=== PATIENT | male | born 2000 | race Caucasian/White ===

== ENCOUNTER 2022-10-23 20:32 | Emergency (ER) | payer BC, SELFPAY ==
[2022-10-23 20:49] VITALS: BP 158/103; PULSE 92; RESP 18; TEMP 36.8; O2SAT 100
--- NOTE | 2022-10-24 01:38 | PC.NURSE ---
Patient's name called twice by provider. No answer and no patient found in waiting room by that name.
== END 2022-10-24 01:38 | disposition left against medical advice (07) ==
DX: Z53.21 Procedure and treatment not carried out due to patient leaving prior to being seen by health care provider (principal)
CPT/HCPCS: 99199

== ENCOUNTER 2025-03-23 02:28 | Emergency (ER) | payer SELFPAY ==
--- NOTE | ~2025-03-23 | XR_ITS ---
EXAMINATION: XR hand RT min 3V DATE: 03/23/2025 02:57 INDICATION: Ulnar-sided right hand pain after punching objects TECHNIQUE: Posteroanterior, oblique and lateral views of the right hand were obtained. COMPARISON: None. FINDINGS: Alignment is normal. No fracture. Joint spaces are normal. Prominent soft tissue swelling dorsal to t he heads of the metacarpals. IMPRESSION: 1. No osseous abnormality. Reviewed, dictated and finalized at location A. IMPRESSION: 1. No osseous abnormality.
--- NOTE | ~2025-03-23 | XR_ITS ---
EXAMINATION: XR elbow RT min 3V DATE: 03/23/2025 02:56 INDICATION: Pain after punching the right elbow through a window TECHNIQUE: Anteroposterior, oblique and lateral views of the right elbow were obtained. COMPARISON: None. FINDINGS: Alignment is normal. No fracture or joint effusion. Joint spaces are normal. Soft tissues are unremar kable. IMPRESSION: 1. Negative right elbow radiographs. Reviewed, dictated and finalized at location A.
[2025-03-23 02:29] VITALS: BP 151/88; PULSE 101; RESP 16; TEMP 36.5; O2SAT 99
--- NOTE | 2025-03-23 02:30 | ECG_ITS ---
Test Date: 2025-03-23 03:30:14 Measurements Intervals [place] Rate: 82 P: 59 KS: 187 QRS: 27 QRSD: 106 T: 19 QT: 360 QTc: 422 Interpretive Statements SINUS RHYTHM POSSIBLE LEFT ATRIAL ENLARGEMENT INCOMPLETE RIGHT BUNDLE BRANCH BLOCK MINIMAL Q WAVES- INF/LAT LEADS BASELINE ARTIFACT- I, III, AVL BORDERLINE ECG No previous ECG available for comparison Electronically Signed On 03-23-2025 07:21:38 CDT by Luca Hughes D.O.
--- NOTE | 2025-03-23 02:39 | ED.GENADULT ---
HPI - General Adult General Chief complaint: Psychiatric Symptoms <Pro Eng MD - Last Filed: 03/23/25 04:35> Stated complaint: RUE INJURIES, SI <Pro Eng MD - Last Filed: 03/23/25 04:35> Time Seen by Provider: 03/23/25 02:30 <Pro Eng MD - Last Filed: 03/23/25 04:35> History of Present Illness HPI narrative: Patient is a 24-year-old gentleman who presents emergency department with chief complaint of suicidal ideation patient reports that he has been drinking this evening and also head use some marijuana patient reports that he found some bad news about his relationship status the patient reports that he found out that his his significant other was having relations with his brother. The patient reports that he became suicidal reports that he punched objects with his right hand and reports that he has abrasions to his forearm and reports that he has pain in his right elbow the patient reports he is unsure of his last tetanus shot reports that he is still actively suicidal and reports that if he was allowed to leave he would wrap his car around an object. The patient also reported that he wanted to commit suicide via [employer] <Pro Eng MD - Last Filed: 03/23/25 04:35> Related Data Allergies/adverse reactions: Allergies Allergy/AdvReac Type Severity Reaction Status Date / Time No Known Allergies Allergy Verified 03/23/25 03:21 <Pro Eng MD - Last Filed: 03/23/25 04:35> Review of Systems Review of Systems: A 10 system review of systems was completed on the patient and is negative except for what is stated in the HPI. Nursing and ancillary documentation was reviewed. <Pro Eng MD - Last Filed: 03/23/25 04:35> PMFSH Social History Social History: Social History Substance use type: marijuana <Pro Eng MD - Last Filed: 03/23/25 04:35> Exam Narrative: GENERAL: Well-appearing, well-nourished, and in no acute distress. HEAD: Normocephalic, atraumatic. EYES: PERRLA and EOMI. ENT: Nares clear, no rhinorrhea or epistaxis. Mucous membranes moist. NECK: Supple. CHEST: Clear to auscultation. No respiratory distress. HEART: Regular rate and rhythm. No murmur heard. Normal peripheral pulses. ABDOMEN: Soft, nontender, nondistended, normal active bowel sounds. EXTREMITIES: Normal range of motion. No edema. There is tenderness to palpation of the right elbow there is tenderness to palpation in the right hand SKIN: Warm, dry, no rash. Multiple abrasions present the forearm NEURO: No focal deficits. Alert and oriented x3. PSYCH: Anxious affect expresses suicidal ideation although intoxicated at this time <Pro Eng MD - Last Filed: 03/23/25 04:35> Course Course Emergency Course: Patient signed out to me pending repeat alcohol level which was initially approximately 160. Repeat is less than 80. Psych/crisis team does come and spend time evaluating the patient at bedside. 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 He has been given resources and they will call the patient for follow-up in the next few days. PD had filled out involuntary paperwork but this was when patient was intoxicated. Does not meet criteria for admission at this time. Stable for discharge. <Loulou Shi MD - Last Filed: 03/23/25 09:39> Vital Signs Vital signs: Vital Signs Temperature 97.7 F 03/23/25 02:29 Pulse Rate 101 H 03/23/25 02:29 Respiratory Rate 16 03/23/25 02:29 Blood Pressure 151/88 H 03/23/25 02:29 Pulse Oximetry 99 03/23/25 02:29 Oxygen Delivery Room Air 03/23/25 02:29 Temperature 97.7 F 03/23/25 02:29 Pulse Rate 66 03/23/25 07:49 Respiratory Rate 20 03/23/25 07:49 Blood Pressure 134/73 03/23/25 07:49 Pulse Oximetry 99 03/23/25 07:49 Oxygen Delivery Room Air 03/23/25 02:29 <Pro Eng MD - Last Filed: 03/23/25 04:35> Vital Signs Temperature 97.7 F 03/23/25 02:29 Pulse Rate 101 H 03/23/25 02:29 Respiratory Rate 16 03/23/25 02:29 Blood Pressure 151/88 H 03/23/25 02:29 Pulse Oximetry 99 03/23/25 02:29 Oxygen Delivery Room Air 03/23/25 02:29 Temperature 97.7 F 03/23/25 02:29 Pulse Rate 66 03/23/25 07:49 Respiratory Rate 20 03/23/25 07:49 Blood Pressure 134/73 03/23/25 07:49 Pulse Oximetry 99 03/23/25 07:49 Oxygen Delivery Room Air 03/23/25 02:29 <Loulou Shi MD - Last Filed: 03/23/25 09:39> Medical Decision Making MDM Narrative Medical decision making narrative: Differential diagnosis includes alcohol intoxication, suicidal ideation, fracture, contusion The patient had multiple abrasions present to the right forearm the abrasions do not require surgical closure and will be treated with wound care. The patient's tetanus status was updated Patient's blood alcohol level was 158 Patient will be observed for 4 hours and repeat alcohol level will be obtained plain film x-ray showed no evidence of fracture <Pro Eng MD - Last Filed: 03/23/25 04:35> Vital Signs Vital Signs: Vital Signs Temperature 97.7 F 03/23/25 02:29 Pulse Rate 101 H 03/23/25 02:29 Respiratory Rate 16 03/23/25 02:29 Blood Pressure 151/88 H 03/23/25 02:29 Pulse Oximetry 99 03/23/25 02:29 Oxygen Delivery Room Air 03/23/25 02:29 Temperature 97.7 F 03/23/25 02:29 Pulse Rate 66 03/23/25 07:49 Respiratory Rate 20 03/23/25 07:49 Blood Pressure 134/73 03/23/25 07:49 Pulse Oximetry 99 03/23/25 07:49 Oxygen Delivery Room Air 03/23/25 02:29 <Pro Eng MD - Last Filed: 03/23/25 04:35> Vital Signs Temperature 97.7 F 03/23/25 02:29 Pulse Rate 101 H 03/23/25 02:29 Respiratory Rate 16 03/23/25 02:29 Blood Pressure 151/88 H 03/23/25 02:29 Pulse Oximetry 99 03/23/25 02:29 Oxygen Delivery Room Air 03/23/25 02:29 Temperature 97.7 F 03/23/25 02:29 Pulse Rate 66 03/23/25 07:49 Respiratory Rate 20 03/23/25 07:49 Blood Pressure 134/73 03/23/25 07:49 Pulse Oximetry 99 03/23/25 07:49 Oxygen Delivery Room Air 03/23/25 02:29 <Loulou Shi MD - Last Filed: 03/23/25 09:39> Lab Data Result diagrams: 03/23/25 02:42 03/23/25 02:42 <Pro Eng MD - Last Filed: 03/23/25 04:35> Labs: Lab Results 03/23/25 03/23/25 03/23/25 Range/Units 02:42 02:43 03:20 WBC 10.4 H (4.5-10.0) K/mm3 RBC 5.44 (4.6-6.20) M/mm3 Hgb 14.0 (14.0-18.0) g/dL Hct 42.4 (42.0-52.0) % MCV 77.9 L (80-100) fl MCH 25.7 L (26-34) pg MCHC 33.0 (32-36) g/dl RDW 13.4 (11.5-14.5) % Plt Count 295 (150-375) k/mm3 MPV 10.4 (7.4-10.4) fl Immature Gran % (Auto) 0.4 (0-0.5) % Neut % (Auto) 59.2 (45.5-73.1) % Lymph % (Auto) 25.0 (18.3-44.2) % [place] % (Auto) 14.3 H (2.6-8.5) % Eos % (Auto) 0.6 (0-4.4) % Baso % (Auto) 0.5 (0.2-1.2) % Lymph # (Auto) 2.61 (0.9-3.2) K/mm3 [place] # (Auto) 1.5 H (0.1-0.6) K/mm3 Eos # (Auto) 0.1 (0-0.3) K/mm3 Baso # (Auto) 0.1 (0.0-0.1) K/mm3 Abs Immat Gran (auto) 0.04 H (0.00-0.031) K/mm3 Absolute Neuts (auto) 6.2 (1.3-6.7) K/mm3 Absolute Nucleated RBC 0.000 (0.0-0.012) K/mm3 Nucleated RBC % 0.0 (0.0-0.2) % Sodium 144 (137-145) mmol/L Potassium 3.5 (3.4-5.0) mmol/L Chloride 108 H (98-107) mmol/L Carbon Dioxide 21 L (22-30) mmol/L Anion Gap 15 H (4-12) mmol/L BUN 9 (9-20) mg/dL Creatinine 1.01 (0.7-1.3) mg/dL Estim Creat Clear Calc 110 ml/min Estimated GFR > 60 (59 - ) Glucose 89 (65-110) mg/dL Calcium 9.5 (8.4-10.2) mg/dL Total Bilirubin 0.5 (0.2-1.3) mg/dL AST 40 (17-59) U/L ALT 27 (6-50) U/L Alkaline Phosphatase 65 (38-126) U/L Total Protein 8.1 (6.3-8.2) g/dL Albumin 5.1 (3.5-5.1) g/dL TSH 3.610 (0.465-4.680) uIU/mL Urine Color Yellow (Yellow) Urine Appearance Clear (Clear) Urine pH 6.5 (5.0-9.0) Ur Specific [place] 1.006 (1.001-1.035) Urine Protein Negative (Negative) mg/dL Urine Glucose (UA) Negative (Negative) mg/dL Urine Ketones Negative (Negative) mg/dL Ur Blood (Man) Negative (Negative) Urine Nitrate Negative (Negative) Urine Bilirubin Negative (Negative) Urine Urobilinogen 0.2 (<2.0) mg/dL Leukocyte Esterase Rfl Negative (Negative) PETE/UL Salicylates < 1.0 L (2-20) mg/dL Urine Opiates Screen Negative (Negative) Urine Methadone Screen Negative (Negative) Acetaminophen < 10 L (10-30) ug/mL Ur Barbiturates Screen Negative (Negative) Ur Phencyclidine Scrn Negative (Negative) Ur Amphetamine Screen Negative (Negative) U Benzodiazepines Scrn Negative (Negative) Urine Cocaine Screen Negative (Negative) U Cannabinoids Screen Positive A (Negative) Ethyl Alcohol 158 (<10) mg/dL Influenza A (RT-PCR) Negative (Negative) Influenza B (RT-PCR) Negative (Negative) RSV (RT-PCR) Negative (Negative) SARS-CoV-2 RNA (RT-PCR) Negative (Negative) 03/23/25 Range/Units 06:54 WBC (4.5-10.0) K/mm3 RBC (4.6-6.20) M/mm3 Hgb (14.0-18.0) g/dL Hct (42.0-52.0) % MCV (80-100) fl MCH (26-34) pg MCHC (32-36) g/dl RDW (11.5-14.5) % Plt Count (150-375) k/mm3 MPV (7.4-10.4) fl Immature Gran % (Auto) (0-0.5) % Neut % (Auto) (45.5-73.1) % Lymph % (Auto) (18.3-44.2) % [place] % (Auto) (2.6-8.5) % Eos % (Auto) (0-4.4) % Baso % (Auto) (0.2-1.2) % Lymph # (Auto) (0.9-3.2) K/mm3 [place] # (Auto) (0.1-0.6) K/mm3 Eos # (Auto) (0-0.3) K/mm3 Baso # (Auto) (0.0-0.1) K/mm3 Abs Immat Gran (auto) (0.00-0.031) K/mm3 Absolute Neuts (auto) (1.3-6.7) K/mm3 Absolute Nucleated RBC (0.0-0.012) K/mm3 Nucleated RBC % (0.0-0.2) % Sodium (137-145) mmol/L Potassium (3.4-5.0) mmol/L Chloride (98-107) mmol/L Carbon Dioxide (22-30) mmol/L Anion Gap (4-12) mmol/L BUN (9-20) mg/dL Creatinine (0.7-1.3) mg/dL Estim Creat Clear Calc ml/min Estimated GFR (59 - ) Glucose (65-110) mg/dL Calcium (8.4-10.2) mg/dL Total Bilirubin (0.2-1.3) mg/dL AST (17-59) U/L ALT (6-50) U/L Alkaline Phosphatase (38-126) U/L Total Protein (6.3-8.2) g/dL Albumin (3.5-5.1) g/dL TSH (0.465-4.680) uIU/mL Urine Color (Yellow) Urine Appearance (Clear) Urine pH (5.0-9.0) Ur Specific [place] (1.001-1.035) Urine Protein (Negative) mg/dL Urine Glucose (UA) (Negative) mg/dL Urine Ketones (Negative) mg/dL Ur Blood (Man) (Negative) Urine Nitrate (Negative) Urine Bilirubin (Negative) Urine Urobilinogen (<2.0) mg/dL Leukocyte Esterase Rfl (Negative) PETE/UL Salicylates (2-20) mg/dL Urine Opiates Screen (Negative) Urine Methadone Screen (Negative) Acetaminophen (10-30) ug/mL Ur Barbiturates Screen (Negative) Ur Phencyclidine Scrn (Negative) Ur Amphetamine Screen (Negative) U Benzodiazepines Scrn (Negative) Urine Cocaine Screen (Negative) U Cannabinoids Screen (Negative) Ethyl Alcohol 72 (<10) mg/dL Influenza A (RT-PCR) (Negative) Influenza B (RT-PCR) (Negative) RSV (RT-PCR) (Negative) SARS-CoV-2 RNA (RT-PCR) (Negative) <Pro Eng MD - Last Filed: 03/23/25 04:35> Lab Results 03/23/25 03/23/25 03/23/25 Range/Units 02:42 02:43 03:20 WBC 10.4 H (4.5-10.0) K/mm3 RBC 5.44 (4.6-6.20) M/mm3 Hgb 14.0 (14.0-18.0) g/dL Hct 42.4 (42.0-52.0) % MCV 77.9 L (80-100) fl MCH 25.7 L (26-34) pg MCHC 33.0 (32-36) g/dl RDW 13.4 (11.5-14.5) % Plt Count 295 (150-375) k/mm3 MPV 10.4 (7.4-10.4) fl Immature Gran % (Auto) 0.4 (0-0.5) % Neut % (Auto) 59.2 (45.5-73.1) % Lymph % (Auto) 25.0 (18.3-44.2) % [place] % (Auto) 14.3 H (2.6-8.5) % Eos % (Auto) 0.6 (0-4.4) % Baso % (Auto) 0.5 (0.2-1.2) % Lymph # (Auto) 2.61 (0.9-3.2) K/mm3 [place] # (Auto) 1.5 H (0.1-0.6) K/mm3 Eos # (Auto) 0.1 (0-0.3) K/mm3 Baso # (Auto) 0.1 (0.0-0.1) K/mm3 Abs Immat Gran (auto) 0.04 H (0.00-0.031) K/mm3 Absolute Neuts (auto) 6.2 (1.3-6.7) K/mm3 Absolute Nucleated RBC 0.000 (0.0-0.012) K/mm3 Nucleated RBC % 0.0 (0.0-0.2) % Sodium 144 (137-145) mmol/L Potassium 3.5 (3.4-5.0) mmol/L Chloride 108 H (98-107) mmol/L Carbon Dioxide 21 L (22-30) mmol/L Anion Gap 15 H (4-12) mmol/L BUN 9 (9-20) mg/dL Creatinine 1.01 (0.7-1.3) mg/dL Estim Creat Clear Calc 110 ml/min Estimated GFR > 60 (59 - ) Glucose 89 (65-110) mg/dL Calcium 9.5 (8.4-10.2) mg/dL Total Bilirubin 0.5 (0.2-1.3) mg/dL AST 40 (17-59) U/L ALT 27 (6-50) U/L Alkaline Phosphatase 65 (38-126) U/L Total Protein 8.1 (6.3-8.2) g/dL Albumin 5.1 (3.5-5.1) g/dL TSH 3.610 (0.465-4.680) uIU/mL Urine Color Yellow (Yellow) Urine Appearance Clear (Clear) Urine pH 6.5 (5.0-9.0) Ur Specific [place] 1.006 (1.001-1.035) Urine Protein Negative (Negative) mg/dL Urine Glucose (UA) Negative (Negative) mg/dL Urine Ketones Negative (Negative) mg/dL Ur Blood (Man) Negative (Negative) Urine Nitrate Negative (Negative) Urine Bilirubin Negative (Negative) Urine Urobilinogen 0.2 (<2.0) mg/dL Leukocyte Esterase Rfl Negative (Negative) PETE/UL Salicylates < 1.0 L (2-20) mg/dL Urine Opiates Screen Negative (Negative) Urine Methadone Screen Negative (Negative) Acetaminophen < 10 L (10-30) ug/mL Ur Barbiturates Screen Negative (Negative) Ur Phencyclidine Scrn Negative (Negative) Ur Amphetamine Screen Negative (Negative) U Benzodiazepines Scrn Negative (Negative) Urine Cocaine Screen Negative (Negative) U Cannabinoids Screen Positive A (Negative) Ethyl Alcohol 158 (<10) mg/dL Influenza A (RT-PCR) Negative (Negative) Influenza B (RT-PCR) Negative (Negative) RSV (RT-PCR) Negative (Negative) SARS-CoV-2 RNA (RT-PCR) Negative (Negative) 03/23/25 Range/Units 06:54 WBC (4.5-10.0) K/mm3 RBC (4.6-6.20) M/mm3 Hgb (14.0-18.0) g/dL Hct (42.0-52.0) % MCV (80-100) fl MCH (26-34) pg MCHC (32-36) g/dl RDW (11.5-14.5) % Plt Count (150-375) k/mm3 MPV (7.4-10.4) fl Immature Gran % (Auto) (0-0.5) % Neut % (Auto) (45.5-73.1) % Lymph % (Auto) (18.3-44.2) % [place] % (Auto) (2.6-8.5) % Eos % (Auto) (0-4.4) % Baso % (Auto) (0.2-1.2) % Lymph # (Auto) (0.9-3.2) K/mm3 [place] # (Auto) (0.1-0.6) K/mm3 Eos # (Auto) (0-0.3) K/mm3 Baso # (Auto) (0.0-0.1) K/mm3 Abs Immat Gran (auto) (0.00-0.031) K/mm3 Absolute Neuts (auto) (1.3-6.7) K/mm3 Absolute Nucleated RBC (0.0-0.012) K/mm3 Nucleated RBC % (0.0-0.2) % Sodium (137-145) mmol/L Potassium (3.4-5.0) mmol/L Chloride (98-107) mmol/L Carbon Dioxide (22-30) mmol/L Anion Gap (4-12) mmol/L BUN (9-20) mg/dL Creatinine (0.7-1.3) mg/dL Estim Creat Clear Calc ml/min Estimated GFR (59 - ) Glucose (65-110) mg/dL Calcium (8.4-10.2) mg/dL Total Bilirubin (0.2-1.3) mg/dL AST (17-59) U/L ALT (6-50) U/L Alkaline Phosphatase (38-126) U/L Total Protein (6.3-8.2) g/dL Albumin (3.5-5.1) g/dL TSH (0.465-4.680) uIU/mL Urine Color (Yellow) Urine Appearance (Clear) Urine pH (5.0-9.0) Ur Specific [place] (1.001-1.035) Urine Protein (Negative) mg/dL Urine Glucose (UA) (Negative) mg/dL Urine Ketones (Negative) mg/dL Ur Blood (Man) (Negative) Urine Nitrate (Negative) Urine Bilirubin (Negative) Urine Urobilinogen (<2.0) mg/dL Leukocyte Esterase Rfl (Negative) PETE/UL Salicylates (2-20) mg/dL Urine Opiates Screen (Negative) Urine Methadone Screen (Negative) Acetaminophen (10-30) ug/mL Ur Barbiturates Screen (Negative) Ur Phencyclidine Scrn (Negative) Ur Amphetamine Screen (Negative) U Benzodiazepines Scrn (Negative) Urine Cocaine Screen (Negative) U Cannabinoids Screen (Negative) Ethyl Alcohol 72 (<10) mg/dL Influenza A (RT-PCR) (Negative) Influenza B (RT-PCR) (Negative) RSV (RT-PCR) (Negative) SARS-CoV-2 RNA (RT-PCR) (Negative) <Loulou Shi MD - Last Filed: 03/23/25 09:39> Discharge Plan Discharge Clinical Impression: Acute alcohol intoxication, Marijuana use, Suicidal ideation, Abrasion <Pro Eng MD - Last Filed: 03/23/25 04:35> Patient Disposition: Home <Pro Eng MD - Last Filed: 03/23/25 04:35> Condition: Stable <Pro Eng MD - Last Filed: 03/23/25 04:35> Instructions: Antibiotic Form, Alcohol Intoxication (DC), Abuse of Alcohol (DC), Abrasion (ED), Suicide Prevention (ED) <Pro Eng MD - Last Filed: 03/23/25 04:35> Additional Instructions: You have been provided resources by our crisis team. I encourage you to use them and follow up with them. You are welcome to return to the emergency department at any time for any new, worsening, or unmanaged symptoms. Work to limit/quit alcohol and marijuana consumption. Follow-up with a primary care physician. If you do not have 1 the name of a doctor is listed below. <Pro Eng MD - Last Filed: 03/23/25 04:35> Patient Language: Maltese <Pro Eng MD - Last Filed: 03/23/25 04:35> Follow-up/Referrals: PHYSICIAN NOT ON STAFF,NONSTAFF [Primary Care Provider] - Donte Dejesus MD [Physician] - (PCP/family practice) <Pro Eng MD - Last Filed: 03/23/25 04:35> Stand Alone Forms: Work/School Release IP <Pro Eng MD - Last Filed: 03/23/25 04:35> Time of Disposition: 09:38 <Pro Eng MD - Last Filed: 03/23/25 04:35> 09:38 <Loulou Shi MD - Last Filed: 03/23/25 09:39>
[2025-03-23 02:50] LABS: Basophils Absolute Auto 0.1 K/mm3 (0.0-0.1); Basophils Percent Auto 0.5 % (0.2-1.2); Eosinophils Absolute Auto 0.1 K/mm3 (0-0.3); Eosinophils Percent Auto 0.6 % (0-4.4); Hematocrit 42.4 % (42.0-52.0); Immature Granulocyte Absolute 0.04 K/mm3 (0.00-0.031); Immature Granulocyte Percent A 0.4 % (0-0.5); Lymphocytes Absolute Auto 2.61 K/mm3 (0.9-3.2); Mean Corpuscular Hemoglobin 25.7 pg (26-34); Mean Corpuscular Volume 77.9 fl (80-100); Mean Platelet Volume 10.4 fl (7.4-10.4); Monocytes Absolute Auto 1.5 K/mm3 (0.1-0.6); Monocytes Percent Auto 14.3 % (2.6-8.5); Neutrophils Absolute Auto 6.2 K/mm3 (1.3-6.7); Neutrophils Percent Auto 59.2 % (45.5-73.1); Platelet Count Result 295 k/mm3 (150-375); Red Blood Count 5.44 M/mm3 (4.6-6.20); Red Cell Distribution Width 13.4 % (11.5-14.5); White Blood Count 10.4 K/mm3 (4.5-10.0)
[2025-03-23 03:03] LABS: Acetaminophen < 10 ug/mL (10-30); Ethanol 158 mg/dL (<10); Salicylate < 1.0 mg/dL (2-20)
[2025-03-23 03:09] LABS: Alanine Aminotransferase 27 U/L (6-50); Albumin Level 5.1 g/dL (3.5-5.1); Alkaline Phosphatase 65 U/L (38-126); Anion Gap 15 mmol/L (4-12); Aspartate Amino Transferase 40 U/L (17-59); Bilirubin,Total 0.5 mg/dL (0.2-1.3); Blood Urea Nitrogen 9 mg/dL (9-20); Calcium 9.5 mg/dL (8.4-10.2); Carbon Dioxide 21 mmol/L (22-30); Chloride 108 mmol/L (98-107); Estimated CRCL calculation 110 ml/min; Estimated Glomerular Filt Rate > 60; Glucose 89 mg/dL (65-110); Potassium 3.5 mmol/L (3.4-5.0); Sodium 144 mmol/L (137-145); Total Protein 8.1 g/dL (6.3-8.2)
[2025-03-23 03:26] LABS: Influenza A QL RT-PCR Negative (Negative); Influenza B QL RT-PCR Negative (Negative); RSV RNA, RT-PCR Negative (Negative); SARS-CoV-2 RNA PCR Negative (Negative)
[2025-03-23 03:28] LABS: Add Urine Microscopic? NO; Appearance Urine Clear (Clear); Bilirubin Urine Negative (Negative); Blood Urine Negative (Negative); Color Urine Yellow (Yellow); Glucose Urine UA Negative (Negative); Ketones Urine Negative (Negative); Leukocyte Esterase Ur Negative LEU/UL (Negative); Nitrate Urine Negative (Negative); Protein Urine Negative (Negative); Specific Grav Ur 1.006 (1.001-1.035); Urobilinogen Urine 0.2 mg/dL (<2.0); pH Urine 6.5 (5.0-9.0)
[2025-03-23 03:56] LABS: Amphetamine Screen Urine Negative (Negative); Barbiturate Screen Urine Negative (Negative); Benzodiazepines Screen Urine Negative (Negative); Cannabinoid Screen Urine Positive (Negative); Cocaine Screen Urine Negative (Negative); Methadone Screen Urine Negative (Negative); Opiate Screen Urine Negative (Negative); Phencyclidine Screen Urine Negative (Negative)
[2025-03-23] MEDS: TETANUS,DIPHTHERIA,AC PERTUSSIS ADULT (0.5 ML) BOOSTRIX IM (04:16)
[2025-03-23 05:00] VITALS: BP 160/81; PULSE 78; RESP 16; O2SAT 99
[2025-03-23 06:04] VITALS: BP 148/79; PULSE 72; RESP 19; O2SAT 99
[2025-03-23 06:58] VITALS: BP 151/74; PULSE 74; RESP 11; O2SAT 100
[2025-03-23 07:16] LABS: Ethanol 72 mg/dL (<10)
[2025-03-23 07:49] VITALS: BP 134/73; PULSE 66; RESP 20; O2SAT 99
== END 2025-03-23 09:48 | disposition home or self-care (01) ==
PROVIDERS: Emergency Medicine; Emergency Provider Student in an Organized Health Care Education/Training Program
DX: R45.851 Suicidal ideations (principal); F10.129 Alcohol abuse with intoxication, unspecified; Y90.6 Blood alcohol level of 120-199 mg/100 ml; F12.90 Cannabis use, unspecified, uncomplicated; S50.811A Abrasion of right forearm, initial encounter; Z23 Encounter for immunization; Z11.52 Encounter for screening for COVID-19; I45.10 Unspecified right bundle-branch block; R94.31 Abnormal electrocardiogram [ECG] [EKG]; W22.8XXA Striking against or struck by other objects, initial encounter
CPT/HCPCS: 36415; 73080; 73130; 80053; 80143; 80179; 80307; 81003; 82077; 84443; 85025; 87637; 90471; 90715; 93005; 99284